=== PATIENT | female | born 1945 | race Two or more races ===

== ENCOUNTER 2021-08-28 08:05 | Inpatient (IN) | payer MEDICAID ==
[2021-08-28] VITALS (28 sets, daily range): BP systolic 87–155; BP diastolic 47–99
[~2021-08-28] VITALS: Ht 162.6 cm; Wt 132.9 kg
[2021-08-28] MEDS ORDERED: SODIUM CHLORIDE 0.9% 1000ML BAG (SEPSIS BOLUS) IV ONE (08:30)
[2021-08-28] MEDS ORDERED: VANCOMYCIN 1 G PREMIX 200 ML IV ONE (09:00)
[2021-08-28] MEDS ORDERED: PIPERACILLIN/TAZ 3.375G PREMIX 50 ML IV ONE (09:00)
[2021-08-28 09:17] LABS: CHLORIDE 87 mEq/L (98-107)
[2021-08-28 09:25] LABS: HEMATOCRIT. 24.6 % (36.0-48.0); MEAN CORPUSCULAR HEMOGLOBIN 27.2 pg (28.0-32.0); MEAN CORPUSCULAR VOLUME 83.4 fL (81.0-99.0); PLATELET 136 x1000/uL (130-400); RED BLOOD CELL COUNT 2.95 mill/uL (4.2-5.4); RED CELL DISTRIBUTION WIDTH 16.8 % (11.6-14.6)
[2021-08-28] MEDS ORDERED: NOREPINEPHRINE 8MG/250ML PMX 250 ML IV STA (09:43)
[2021-08-28] MEDS ORDERED: ACETAMINOPHEN 650MG SUPP PR ONE (09:45)
[2021-08-28 10:14] LABS: PLATELET ESTIMATE NORMAL
[2021-08-28 10:38] LABS: COLOR URINE DK YELLOW (YELLOW); KETONES URINE TRACE (NEGATIVE); LEUKOCYTE ESTERASE URINE NEGATIVE (NEGATIVE); NITRITE URINE NEGATIVE (NEGATIVE); OCCULT BLOOD URINE NEGATIVE (NEGATIVE); PH URINE 5.5 (4.5-8.0); PROTEIN URINE 2+ (NEGATIVE); SPECIFIC GRAVITY URINE 1.015 (1.005-1.030)
[2021-08-28 10:43] LABS: CLARITY URINE CLEAR (CLEAR)
[2021-08-28] MEDS ORDERED: ACETAMINOPHEN 325MG TABLET PO PRN ×2 (11:30)
[2021-08-28] MEDS ORDERED: NOREPINEPHRINE 8 MG in DEXT 5% WATER 242 ML IV PRN ×2 (11:30→18:15)
[2021-08-28] MEDS ORDERED: NITROGLYCERIN 0.4MG TABLET SL SL PRN (11:30)
[2021-08-28] MEDS ORDERED: GUAIFENESIN 200MG/10ML SUGAR FREE UDC PO PRN (11:30)
[2021-08-28] MEDS ORDERED: IPRATROPIUM/ALBUTEROL 0.5-3(2.5)MG/3ML NEB NEB PRN (11:30)
[2021-08-28] MEDS ORDERED: ONDANSETRON HCL 4MG/2ML INJ IV PRN (11:30)
[2021-08-28] MEDS ORDERED: CLONIDINE 0.1MG TABLET PO PRN (11:30)
[2021-08-28] MEDS ORDERED: PIPERACILLIN/TAZ 3.375G PREMIX 50 ML IV SCH (11:30)
[2021-08-28] MEDS ORDERED: MAGNESIUM/ALUMINUM HYDROXIDE/SIMETHICONE 30ML UDC PO PRN (11:30)
[2021-08-28 11:39] LABS: ETHANOL BLOOD < 10 mg/dL
[2021-08-28 11:41] LABS: TOTAL IRON BINDING CAPACITY 371 ug/dL (250-450)
[2021-08-28] MEDS: DEXT 5%/LACTATED RINGERS 1,000 ML IV SCH ×2 (11:48→17:09)
[2021-08-28] MEDS: PANTOPRAZOLE SODIUM 40 MG/VIAL IV SCH (11:56)
[2021-08-28] MEDS: PIPERACILLIN/TAZ 3.375G PREMIX 50 ML IV SCH ×2 (14:33→21:33)
[2021-08-28 14:39] LABS: BG BASE EXCESS -0.2 mmol/L (-2.0-2.0); BG CARBOXYHEMOGLOBIN 0.2 % (0.5-1.5); BG DEOXYHEMOGLOBIN 2.3 % (0.0-5.0); BG FRACTION INSPIRED OXYGEN 36; BG HCO3 ACT 23.7 mmol/L (22.0-26.0); BG METHEMOGLOBIN 0.1 % (0.0-1.5); BG OXYGEN SATURATION 97.7 % (92.0-98.5); BG OXYHEMOGLOBIN 97.4 % (94.0-97.0); BG PCO2 36.2 mmHg (35.0-45.0); BG PH 7.434 (7.350-7.450); BG PO2 102.7 mmHg (75.0-100.0); BG SAMPLE SITE RIGHT BRACHIAL; BG TOTAL HEMOGLOBIN 11.2 g/dL (12.0-18.0); BG VENT MODE NASAL CANNULA
[2021-08-28] MEDS: NOREPINEPHRINE 8 MG in DEXT 5% WATER 242 ML IV PRN ×2 (15:10→21:33)
[2021-08-28] MEDS: DEXT 5%/0.9% NACL 1,000 ML IV SCH (17:50)
[2021-08-28] MEDS ORDERED: MAGN500C4 PO (18:55)
[2021-08-28] MEDS ORDERED: METF500S7 PO (18:55)
[2021-08-28] MEDS ORDERED: METO-396 PO (18:55)
[2021-08-28] MEDS ORDERED: LEVO25TA7 MT (18:55)
[2021-08-28] MEDS ORDERED: RIVA1TAB PO (18:55)
[2021-08-28] MEDS ORDERED: FURO80TA87 PO (18:55)
[2021-08-28] MEDS ORDERED: GABA-532 PO (18:55)
[2021-08-28] MEDS: IRON SUCROSE COMPLEX 100 MG/5 ML ML IV SCH (19:04)
[2021-08-28] MEDS ORDERED: ZOLPIDEM TARTRATE 5MG TABLET PO PRN (21:00)
[2021-08-28] MEDS ORDERED: PIPERACILLIN/TAZOBACTAM 3.375G in DEXT 5% WATER 50ML IV SCH (22:00)
[2021-08-28 22:43] LABS: CREATINE KINASE MB FRACTION 1.5 ng/mL (0.5-3.6)
[2021-08-29] VITALS (67 sets, daily range): BP systolic 81–139; BP diastolic 37–84
[2021-08-29 00:38] LABS: CREATINE KINASE MB FRACTION 1.9 ng/mL (0.5-3.6)
[2021-08-29] MEDS: DEXT 5%/0.9% NACL 1,000 ML IV SCH ×4 (01:51→20:30)
[2021-08-29] MEDS: PIPERACILLIN/TAZ 3.375G PREMIX 50 ML IV SCH (06:02)
[2021-08-29 06:37] LABS: CHLORIDE 91 mEq/L (98-107)
[2021-08-29 06:39] LABS: INR 2.1; PROTHROMBIN TIME 21.4 sec (9.6-11.0)
[2021-08-29 06:50] LABS: PHOSPHORUS 3.4 mg/dL (2.5-4.9)
[2021-08-29 06:53] LABS: CREATINE KINASE 35 IU/L (26-192)
[2021-08-29 07:26] LABS: HEMATOCRIT. 28.3 % (36.0-48.0); HEMOGLOBIN. 9.4 g/dL (12.0-16.0); MEAN CORPUSCULAR HEMOGLOBIN 27.6 pg (28.0-32.0); MEAN PLATELET VOLUME 8.4 fl (7.4-10.4); PLATELET 158 x1000/uL (130-400); RED BLOOD CELL COUNT 3.41 mill/uL (4.2-5.4); RED CELL DISTRIBUTION WIDTH 17.1 % (11.6-14.6)
[2021-08-29 08:51] LABS: BG BASE EXCESS 6.4 mmol/L (-2.0-2.0); BG CARBOXYHEMOGLOBIN 0.5 % (0.5-1.5); BG DEOXYHEMOGLOBIN 1.1 % (0.0-5.0); BG HCO3 ACT 30.7 mmol/L (22.0-26.0); BG METHEMOGLOBIN 0.2 % (0.0-1.5); BG OXYGEN SATURATION 98.9 % (92.0-98.5); BG OXYHEMOGLOBIN 98.2 % (94.0-97.0); BG PCO2 43.3 mmHg (35.0-45.0); BG PH 7.469 (7.350-7.450); BG SAMPLE SITE RIGHT BRACHIAL; BG TOTAL HEMOGLOBIN 9.6 g/dL (12.0-18.0); BG VENT MODE NASAL CANNULA
[2021-08-29] MEDS: PANTOPRAZOLE SODIUM 40 MG/VIAL IV SCH (08:53)
[2021-08-29] MEDS: VANCOMYCIN 750 MG in DEXT 5% WATER 250 ML IV SCH (08:53)
[2021-08-29 10:36] LABS: PLATELET ESTIMATE NORMAL
[2021-08-29] MEDS ORDERED: MIDODRINE HCL 5MG TABLET PO SCH (13:00)
[2021-08-29] MEDS: PIPERACILLIN/TAZOBACTAM 3.375G in DEXT 5% WATER 50ML IV SCH ×2 (13:41→20:57)
[2021-08-29] MEDS: LEVOTHYROXINE SODIUM 50MCG TABLET PO SCH (15:14)
[2021-08-29] MEDS: MAGNESIUM OXIDE 400MG TABLET PO SCH (15:16)
[2021-08-29] MEDS ORDERED: KCL 10MEQ/50ML PREMIX 50 ML IV NR (15:30)
[2021-08-29] MEDS: IRON SUCROSE COMPLEX 100 MG/5 ML ML IV SCH (18:55)
[2021-08-29] MEDS: GUAIFENESIN 600MG ER TABLET PO SCH (20:56)
[2021-08-29] MEDS: MIDODRINE HCL 5MG TABLET PO SCH (21:04)
[2021-08-30] VITALS (13 sets, daily range): BP systolic 90–124; BP diastolic 34–75
[2021-08-30] MEDS: PIPERACILLIN/TAZOBACTAM 3.375G in DEXT 5% WATER 50ML IV SCH ×3 (05:06→21:35)
[2021-08-30] MEDS: MIDODRINE HCL 5MG TABLET PO SCH ×3 (05:08→21:34)
[2021-08-30] MEDS: LEVOTHYROXINE SODIUM 50MCG TABLET PO SCH (05:55)
[2021-08-30 07:05] LABS: HEMOGLOBIN. 8.5 g/dL (12.0-16.0); MEAN CORPUSCULAR HEMOGLOBIN 27.7 pg (28.0-32.0); MEAN CORPUSCULAR VOLUME 81.8 fL (81.0-99.0); MEAN PLATELET VOLUME 7.9 fl (7.4-10.4); PLATELET 128 x1000/uL (130-400); RED BLOOD CELL COUNT 3.06 mill/uL (4.2-5.4); RED CELL DISTRIBUTION WIDTH 17.2 % (11.6-14.6)
[2021-08-30] MEDS: DOCUSATE SODIUM 100MG CAPSULE PO PRN (08:49)
[2021-08-30] MEDS: MAGNESIUM OXIDE 400MG TABLET PO SCH (08:49)
[2021-08-30] MEDS: PANTOPRAZOLE SODIUM 40 MG/VIAL IV SCH (08:49)
[2021-08-30] MEDS: DEXT 5%/0.9% NACL 1,000 ML IV SCH ×2 (08:50→16:49)
[2021-08-30] MEDS: GUAIFENESIN 600MG ER TABLET PO SCH ×2 (08:55→21:33)
[2021-08-30] MEDS: VANCOMYCIN 750 MG in DEXT 5% WATER 250 ML IV SCH (10:38)
[2021-08-30] MEDS ORDERED: KCL 20MEQ/100ML PREMIX 100 ML IV SCH (14:00)
[2021-08-30 15:14] LABS: PLATELET ESTIMATE SLIGHTLY DECREASED
[2021-08-30] MEDS: IRON SUCROSE COMPLEX 100 MG/5 ML ML IV SCH (17:50)
[2021-08-30] MEDS: LACTULOSE 20G/30ML UDC PO SCH ×2 (17:50→21:35)
[2021-08-31] VITALS (13 sets, daily range): BP systolic 95–120; BP diastolic 51–72
[2021-08-31] MEDS: DEXT 5%/0.9% NACL 1,000 ML IV SCH ×3 (01:56→14:55)
[2021-08-31] MEDS: LACTULOSE 20G/30ML UDC PO SCH ×4 (05:24→21:16)
[2021-08-31] MEDS: MIDODRINE HCL 5MG TABLET PO SCH ×3 (05:26→21:17)
[2021-08-31] MEDS: PIPERACILLIN/TAZOBACTAM 3.375G in DEXT 5% WATER 50ML IV SCH ×3 (05:27→21:16)
[2021-08-31] MEDS: LEVOTHYROXINE SODIUM 50MCG TABLET PO SCH (05:52)
[2021-08-31 07:34] LABS: BASOPHILS % 0.8 % (0.0-2.0); EOSINOPHILS % 2.6 % (0.0-5.0); HEMATOCRIT. 25.6 % (36.0-48.0); HEMOGLOBIN. 8.4 g/dL (12.0-16.0); LYMPHOCYTES % 8.7 % (20.0-50.0); MEAN CORPUSCULAR HEMOGLOBIN 27.5 pg (28.0-32.0); MEAN CORPUSCULAR VOLUME 83.3 fL (81.0-99.0); MEAN PLATELET VOLUME 8.2 fl (7.4-10.4); MONOCYTES % 4.6 % (2.0-8.0); NEUTROPHILS % 83.3 % (40.0-76.0); PLATELET 130 x1000/uL (130-400); RED BLOOD CELL COUNT 3.07 mill/uL (4.2-5.4); RED CELL DISTRIBUTION WIDTH 17.3 % (11.6-14.6)
[2021-08-31] MEDS: VANCOMYCIN 750 MG in DEXT 5% WATER 250 ML IV SCH (08:30)
[2021-08-31] MEDS: PANTOPRAZOLE SODIUM 40 MG/VIAL IV SCH (08:31)
[2021-08-31] MEDS: MAGNESIUM OXIDE 400MG TABLET PO SCH (08:31)
[2021-08-31] MEDS: DOCUSATE SODIUM 100MG CAPSULE PO PRN (08:31)
[2021-08-31] MEDS: GUAIFENESIN 600MG ER TABLET PO SCH ×2 (08:31→21:16)
[2021-09-01] VITALS (11 sets, daily range): BP systolic 100–157; BP diastolic 61–97
[2021-09-01] MEDS: DEXT 5%/0.9% NACL 1,000 ML IV SCH ×3 (02:38→17:00)
[2021-09-01] MEDS: PIPERACILLIN/TAZOBACTAM 3.375G in DEXT 5% WATER 50ML IV SCH ×3 (05:44→20:48)
[2021-09-01] MEDS: MIDODRINE HCL 5MG TABLET PO SCH ×3 (05:44→20:48)
[2021-09-01] MEDS: LACTULOSE 20G/30ML UDC PO SCH ×3 (05:44→20:47)
[2021-09-01] MEDS: LEVOTHYROXINE SODIUM 25MCG TABLET PO SCH (06:03)
[2021-09-01 07:28] LABS: BASOPHILS % 0.8 % (0.0-2.0); EOSINOPHILS % 2.9 % (0.0-5.0); HEMATOCRIT. 27.8 % (36.0-48.0); HEMOGLOBIN. 8.9 g/dL (12.0-16.0); LYMPHOCYTES % 10.9 % (20.0-50.0); MEAN CORPUSCULAR HEMOGLOBIN 26.9 pg (28.0-32.0); MEAN CORPUSCULAR VOLUME 83.9 fL (81.0-99.0); MONOCYTES % 7.7 % (2.0-8.0); NEUTROPHILS % 77.7 % (40.0-76.0); PLATELET 139 x1000/uL (130-400); RED BLOOD CELL COUNT 3.31 mill/uL (4.2-5.4); RED CELL DISTRIBUTION WIDTH 17.5 % (11.6-14.6)
[2021-09-01] MEDS: MAGNESIUM OXIDE 400MG TABLET PO SCH (08:39)
[2021-09-01] MEDS: DOCUSATE SODIUM 100MG CAPSULE PO PRN (08:39)
[2021-09-01] MEDS: GUAIFENESIN 600MG ER TABLET PO SCH ×2 (08:39→20:48)
[2021-09-01] MEDS: PANTOPRAZOLE SODIUM 40 MG/VIAL IV SCH (08:39)
[2021-09-01] MEDS: VANCOMYCIN 750 MG in DEXT 5% WATER 250 ML IV SCH (08:59)
[2021-09-02] VITALS (8 sets, daily range): BP systolic 104–144; BP diastolic 60–85
[2021-09-02] MEDS: LACTULOSE 20G/30ML UDC PO SCH (05:53)
[2021-09-02] MEDS: PIPERACILLIN/TAZOBACTAM 3.375G in DEXT 5% WATER 50ML IV SCH (05:53)
[2021-09-02] MEDS: LEVOTHYROXINE SODIUM 25MCG TABLET PO SCH (05:53)
[2021-09-02] MEDS: DEXT 5%/0.9% NACL 1,000 ML IV SCH ×2 (05:54→09:00)
[2021-09-02] MEDS: MIDODRINE HCL 5MG TABLET PO SCH (05:54)
[2021-09-02 07:09] LABS: BASOPHILS % 1.3 % (0.0-2.0); EOSINOPHILS % 2.5 % (0.0-5.0); HEMATOCRIT. 26.5 % (36.0-48.0); HEMOGLOBIN. 8.9 g/dL (12.0-16.0); MEAN CORPUSCULAR VOLUME 83.1 fL (81.0-99.0); MEAN PLATELET VOLUME 7.7 fl (7.4-10.4); MONOCYTES % 11.4 % (2.0-8.0); NEUTROPHILS % 73.8 % (40.0-76.0); PLATELET 148 x1000/uL (130-400); RED BLOOD CELL COUNT 3.19 mill/uL (4.2-5.4); RED CELL DISTRIBUTION WIDTH 16.9 % (11.6-14.6)
[2021-09-02 08:12] LABS: CHLORIDE 96 mEq/L (98-107)
[2021-09-02] MEDS ORDERED: POTASSIUM CHLORIDE 20MEQ TABLET SR PO SCH (09:00)
[2021-09-02] MEDS: MAGNESIUM OXIDE 400MG TABLET PO SCH (09:55)
[2021-09-02] MEDS: PANTOPRAZOLE SODIUM 40 MG/VIAL IV SCH (09:55)
[2021-09-02] MEDS: GUAIFENESIN 600MG ER TABLET PO SCH (09:55)
[2021-09-02] MEDS: VANCOMYCIN 750 MG in DEXT 5% WATER 250 ML IV SCH (10:57)
== END 2021-09-02 13:28 | disposition home health service (06) | DRG 720 ==
LOC: ER 08:05 → MICUSO 10:50 → EDBEDREQ 10:53 → EDBEDREQSVC 10:53 → MICUNO 15:00 → ENRESERV 15:31 → 3WST 08-29 17:49
PROVIDERS: ADMIT Internal Medicine; ATTEND Internal Medicine
PROC: 05HY33Z Insertion of Infusion Device into Upper Vein, Percutaneous Approach (ICD-10-PCS; principal; 2021-08-28)
PROC: B54MZZA Ultrasonography of Right Upper Extremity Veins, Guidance (ICD-10-PCS; 2021-08-28)
DX: A41.9 Sepsis, unspecified organism (principal); N17.0 Acute kidney failure with tubular necrosis; R65.21 Severe sepsis with septic shock; I21.4 Non-ST elevation (NSTEMI) myocardial infarction; E43 Unspecified severe protein-calorie malnutrition; G92.8 Other toxic encephalopathy; D68.59 Other primary thrombophilia; E83.51 Hypocalcemia; D62 Acute posthemorrhagic anemia; E87.1 Hypo-osmolality and hyponatremia; K80.20 Calculus of gallbladder without cholecystitis without obstruction; E66.01 Morbid (severe) obesity due to excess calories; E78.5 Hyperlipidemia, unspecified; G47.33 Obstructive sleep apnea (adult) (pediatric); Z20.822 Contact with and (suspected) exposure to COVID-19; E83.42 Hypomagnesemia; E03.9 Hypothyroidism, unspecified; E87.6 Hypokalemia; I48.20 Chronic atrial fibrillation, unspecified; K74.60 Unspecified cirrhosis of liver; K72.90 Hepatic failure, unspecified without coma; E11.21 Type 2 diabetes mellitus with diabetic nephropathy; I51.7 Cardiomegaly; I12.9 Hypertensive chronic kidney disease with stage 1 through stage 4 chronic kidney disease, or unspecified chronic kidney disease; E11.22 Type 2 diabetes mellitus with diabetic chronic kidney disease; N18.31 Chronic kidney disease, stage 3a; Z79.01 Long term (current) use of anticoagulants; Z68.30 Body mass index [BMI] 30.0-30.9, adult; Z82.49 Family history of ischemic heart disease and other diseases of the circulatory system
CPT/HCPCS: 36415; 36600; 71045; 74176; 76700; 76937; 80048; 80053; 80076; 80202; 80320; 81003; 82140; 82248; 82330; 82375; 82550; 82553; 82607; 82728; 82746; 82805; 83036; 83540; 83550; 83605; 83735; 84100; 84145; 84439; 84443; 84484; 85018; 85025; 85044; 86850; 86900; 87426; 92610; 93005; 93306; 93970; 97163; 97166; 99291; A6261; C1725; C1769; C9113; J2405; J2543; J3370; J3480; J3490; J7030; J7040; J7042; J7060; A4315; G0480